=== PATIENT | male | born 1960 | race Caucasian/White ===

== ENCOUNTER 2022-10-11 09:10 | Emergency (ER) | payer BC, SELFPAY ==
[2022-10-11 09:19] VITALS: BP 176/103; PULSE 85; RESP 16; TEMP 36.7; O2SAT 98; BMI 32.9
--- NOTE | 2022-10-11 09:29 | ED.GENADULT ---
HPI - General Adult General Time Seen by Provider: 09:29 Date Seen: 10/11/22 Chief complaint: Dizziness/Vertigo Stated complaint: vertigo/syncope + vomiting Time Seen by Provider: 10/11/22 09:26 Source: patient and RN notes reviewed Mode of arrival: ambulatory Limitations: no limitations History of Present Illness HPI narrative: This 61-year-old male is driven in from work where he had the sudden development of spinning sensation. He was walking up some stairs for meeting and started having sudden onset of spinning, subsequently had nausea vomiting and dry heaves. He has not been ill with anything, no underlying cough cold symptoms. No headache, no visual changes. Notes no numbness tingling anywhere, no incoordination or abnormal ability to use arms and legs. He does not feel like he can walker move very well as a precipitate the dizziness, if he tries to lie flat the spinning starts again. If he is sitting semi upright and still, feels better. Still nauseated but no subsequent vomiting since arrival. He is never had vertigo before. This started about 7:00 a.m., I am seeing him around 9:30 a.m.. No chest pain, no palpitations or irregular heart beat sensed. Related Data Home Medications Medication Instructions Recorded Confirmed indomethacin 50 mg capsule mg PO 10/11/22 Previous Rx's Medication Instructions Recorded hydroxyzine HCl 25 mg tablet 25 mg PO QID PRN #20 tabs 10/11/22 Allergies Allergy/AdvReac Type Severity Reaction Status Date / Time No Known Drug Allergies Allergy Verified 10/11/22 10:14 Review of Systems Status of ROS: Reports: 6 or more systems reviewed and unremarkable except as noted in History and below [facility] Social History Smoking Status: Never smoker Do you use any of these nicotine containing products: None Second hand tobacco smoke exposure: No How often do you have a drink containing alcohol: monthly or less AUDIT-C Alcohol total score: 1 Non-prescribed substance use: denies use service: No Exam Const: Vital Signs, click to edit/add: Vital Signs - 24 hr 10/11/22 09:19 10/11/22 09:30 10/11/22 09:33 Temperature 98.0 F Pulse Rate [Pulse Oximeter] 85 87 Respiratory Rate 16 16 Blood Pressure [Le ft Upper Arm] 176/103 H 189/100 H Pulse Oximetry 98 99 99 Oxygen Delivery Me thod Room Air Room Air 10/11/22 10:00 10/11/22 10:30 Temperature 98.0 F Pulse Rate [Pulse Oximeter] 85 80 Respiratory Rate 16 14 Blood Pressure [Le ft Upper Arm] 181/100 H 168/110 H Pulse Oximetry 99 98 Oxygen Delivery Me thod Room Air Room Air This 61-year-old male is alert interactive, looks like he does not feel well but is pleasant and conversive. Pupils are equal round, extraocular muscles intact but do note left beating horizontal nystagmus. Symmetrical facial function, speech normal. No visual changes on confrontation. Neck is supple, no masses. CV regular rate and rhythm, no murmur. Lungs are clear, no tachypnea, no wheezing or crackles. Abdomen is soft no rebound or guarding organomegaly. Motor sensory normal and symmetrical throughout face arms and legs. No tremors, no dysmetria noted. NIH is 0 at this time. Documenting provider has reviewed patient's vital signs: yes Course Course Hospital Course: This patient is presenting with sudden onset vertigo this morning, peripheral versus central is unclear here. Do favor peripheral with his presentation in no other symptoms outside of nystagmus in the vertigo but will contact Stroke Neurology. Will be ordering stat head CT, will discuss further imaging with Stroke Neurology. Will get EKG, have him on cardiac monitoring and pulse oximetry and appropriate labs. Reevaluation(s) Time of Reevaluation #1: 11:07 Reevaluation #1: Parker is feeling better, still had the vertigo when he had to lie flat for CT imaging. I will add in oral dose of Vistaril to see if that does help. This is appearing to be a peripheral process, likely labyrinthitis or vestibulitis. Time of Reevaluation #2: 12:59 Reevaluation #2: Patient is feeling much better, has been up and ambulatory to the bathroom without significant difficulty. He has questions about when he will be able to go back to work. Reviewed with him I do not know for sure but will be based on his symptoms. Do recommend ongoing meclizine scheduled for few days and I will send a prescription for p.r.n. hydroxyzine in. Will provide him a note for work for the next 2 days, follow up with his primary care provider if he needs longer. Will also provide him a note for physical therapy should he decide he would want to pursue that for ongoing symptoms. Consultations Consultation #1: Spoke with neurologist on-call for stroke Neurology. They are going to see the patient. They do agree with the head CT. Time: 09:37 Consultation #2: Patient has been evaluated by the neurologist, agrees that there are no other focal deficits outside of the vertigo and nystagmus. The neurologist reports that they were able to get Parker up and take a few steps. They do want the CT angiograms done and patient is currently in there having this performed. Time: 09:58 Vital Signs Vital signs: Initial Vital Signs Temperature 98.0 F 10/11/22 09:19 Temperature Source Temporal Artery Scan 10/11/22 09:19 Pulse Rate 85 10/11/22 09:19 Pulse Rhythm Regular 10/11/22 09:19 Respiratory Rate 16 10/11/22 09:19 Blood Pressure 176/103 H 10/11/22 09:19 Blood Pressure Mean 127 H 10/11/22 09:19 Blood Pressure Position Supine 10/11/22 09:19 Pulse Oximetry 98 10/11/22 09:19 Oxygen Delivery Method Room Air 10/11/22 09:19 Vital Signs Temperature 98.0 F 10/11/22 09:19 Pulse Rate 85 10/11/22 09:19 Respiratory Rate 16 10/11/22 09:19 Blood Pressure 176/103 H 10/11/22 09:19 Pulse Oximetry 98 10/11/22 09:19 Oxygen Delivery Method Room Air 10/11/22 09:19 Temperature 98.0 F 10/11/22 10:30 Pulse Rate 80 10/11/22 10:30 Respiratory Rate 14 10/11/22 10:30 Blood Pressure 168/110 H 10/11/22 10:30 Pulse Oximetry 98 10/11/22 10:30 Oxygen Delivery Method Room Air 10/11/22 10:30 Medical Decision Making Lab Data Lab results reviewed: Yes I reviewed the patient's lab results Lab results narrative: Confirmed with lab that blood is mildly hemolyzed, very likely reason for the slightly elevated potassium of 5.4. Labs: Lab Results 10/11/22 10/11/22 10/11/22 Range/Units 05:35 09:38 09:38 WBC 6.39 (4.50-11.00) K/uL RBC 5.62 (4.30-5.90) m/uL Hgb 17.4 (13.5-17.5) gm/dL Hct 50.6 (37.0-53.0) % MCV 90 (80-100) fL MCH 31 (26-34) pg MCHC 34 (32-36) gm/dL RDW Coeff of Yassine 13.1 (11.5-15.5) % Plt Count 140 (140-440) K/uL Neut % (Auto) 66.0 (42.0-72.0) % Lymph % (Auto) 24.7 (20-44) % Winkler % (Auto) 7.5 (0.0-11.0) % Eos % (Auto) 0.6 (0.0-7.0) % Baso % (Auto) 0.3 (0.0-3.0) % Neut # (Auto) 4.21 (1.7-7.0) K/uL Lymph # (Auto) 1.58 (0.90-2.90) K/uL Winkler # (Auto) 0.50 (0.00-0.90) K/UL Eos # (Auto) 0.04 (0.00-0.50) K/uL Baso # (Auto) 0.02 (0.00-0.30) K/uL Abs Immat Gran (auto) 0.06 (0.00-0.30) K/uL Imm/Tot Granulo (auto) 0.9 % Sodium 138 (135-149) mmol/L Potassium 5.4 H (3.6-5.1) mmol/L Chloride 105 (96-114) mmol/L Carbon Dioxide 24 (20-32) mmol/L Anion Gap 9 (7-15) mEq/L BUN 24 (7-30) mg/dL Creatinine 1.2 (0.5-1.5) mg/dL Estimated Creat Clear 61.20 Estimated GFR 69 ml/min Glucose 166 H (60-115) mg/dL Calcium 9.7 (8.4-10.6) mg/dL Magnesium 2.0 Cancelled (1.5-2.6) mg/dL TSH 2.490 (0.270-4.200) uIU/mL Imaging Data CT scan - head: Attestation: I have reviewed the pertinent imaging results. Radiologist's impression: Patient: CAROLYN RIZZO Facility:?[facility] Patient ID:?[id number] Site Patient ID:?[id number]. Site :?[id number] Study:?CT Head STROKE CODE-10/11/2022 9:51:57 AM Ordering Physician:?Oh Banerjee Final Report: INDICATION: Sudden onset of vertigo. COMPARISON: None. TECHNIQUE: CT of the head without IV contrast. Coronal and sagittal reconstructions. FINDINGS: No intracranial hemorrhage, mass effect, or evidence of acute infarct. No midline shift. No abnormal extra-axial fluid collections. Normal caliber ventricular system. Orbits and extraocular muscles are symmetric. The visualized paranasal sinuses and mastoid air cells are clear. No acute fracture identified. Soft tissues are unremarkable. IMPRESSION: No acute intracranial findings. Please note that all CT scans at this facility use dose modulation, iterative reconstruction, and/or weight-based dosing when appropriate to reduce radiation dose to as low as reasonably achievable. Dictated by Netta Casey MD @ 10/11/2022 10:07:10 AM (Electronic Signature) CTA head: Attestation: I have reviewed the pertinent imaging results. Radiologist's impression: Patient: CAROLYN RIZZO Facility:?[facility] Patient ID:?[id number] Site Patient ID:?[id number]. Site :?1960 Study:?CT Head Angio STROKE CODE-10/11/2022 10:11:04 AM Ordering Physician:?Oh Banerjee Final Report: INDICATION: Sudden onset vertigo. TECHNIQUE: CTA head with contrast bolus tracking, 3D angiographic rendering using maximum intensity projection (MIP) and images permanently archived. FINDINGS: There is normal opacification of the intracranial vasculature. There is no large vessel occlusion. No aneurysm is identified. IMPRESSION: Unremarkable head CTA. No large vessel occlusion. Please note that all CT scans at this facility use dose modulation, iterative reconstruction, and/or weight-based dosing when appropriate to reduce radiation dose to as low as reasonably achievable. Dictated by Juan Ramon Albarado MD @ 10/11/2022 10:17:13 AM (Electronic Signature) CTA neck: Attestation: I have reviewed the pertinent imaging results. Radiologist's impression: Patient: CAROLYN RIZZO Facility:?[facility] Patient ID:?[id number] Site Patient ID:?[id number]. Site :?[id number] Study:?CT Neck Angio Angio STROKE CODE-10/11/2022 10:11:33 AM Ordering Physician:Jazmyne Banerjee Final Report: INDICATION: Sudden onset vertigo. TECHNIQUE: CTA neck with contrast bolus tracking, 3D angiographic rendering using maximum intensity projection (MIP) and images permanently archived. FINDINGS: There is minor carotid atherosclerosis. There is no significant carotid artery stenosis or dissection. There is no significant vertebral artery stenosis or dissection. The soft tissues of the neck are within normal limits. The cervical spine is in normal alignment. Degenerative changes are noted in the cervical spine. IMPRESSION: No significant carotid or vertebral artery stenosis or dissection. Please note that all CT scans at this facility use dose modulation, iterative reconstruction, and/or weight-based dosing when appropriate to reduce radiation dose to as low as reasonably achievable. Dictated by Juan Ramon Albarado MD @ 10/11/2022 10:19:32 AM (Electronic Signature) ECG Data Attestation: I personally reviewed and interpreted this ECG as follows: (Normal sinus rhythm, 85 beats per minute. No ischemic change. QT corrected 454 milliseconds.) Prior ECG tracings: not available for review Discharge Plan Discharge Clinical Impression: Vertigo Patient Disposition: Home, Self-Care Condition: Stable Instructions: Vertigo (ED) Additional Instructions: Take meclizine 25 mg 3 times a day scheduled for the next few days, then can take as needed. Will also write for Vistaril/hydroxyzine which can be used in supplement with the meclizine for further needed control of recurrent vertigo symptoms. Have provided you note to be out of work, have provided a referral to physical therapy if you have ongoing symptoms. Do recommend follow-up with your primary care provider within this week if you are not steadily improving over the next few days. Overall symptoms could last 7-10 days if this is a viral process, vestibular neuronitis. No that the medications can be sedating, may need to be careful driving or operating machinery if they are causing the side effect for you. Activity Level: Activity as Tolerated Discharge Diet: Regular Prescriptions: New hydroxyzine HCl 25 mg tablet 25 mg PO QID PRNQty: 20 0RF No Action indomethacin 50 mg capsule PO Stand Alone Forms: [employer] Info Instructions
[2022-10-11 09:30] VITALS: O2SAT 99
--- NOTE | 2022-10-11 09:30 | PC.NURSE ---
physician in room with patient, code stroke activated. pt last known well time 0700 this morning per pt. Neurology paged per workflow. Call back at 0935. Pt in CT and returned to room, RN assisted with Teleneurology. Orders to have CTA per Neurologist.
[2022-10-11 09:33] VITALS: BP 189/100; PULSE 87; RESP 16; O2SAT 99
--- NOTE | 2022-10-11 09:33 | CRLHL7_ITS ---
For Patients: As a result of the Cures Act, medical imaging exams and procedure reports are released immediately into your electronic medical record. You may view this report before your referring provider. If you have questions, please contact your health care provider. INDICATION: Sudden onset of vertigo. COMPARISON: None. TECHNIQUE: CT of the head without IV contrast. Coronal and sagittal reconstructions. FINDINGS: No intracranial hemorrhage, mass effect, or evidence of acute infarct. No midline shift. No abnormal extra-axial fluid collections. Normal caliber ventricular system. Orbits and extraocular muscles are symmetric. The visualized paranasal sinuses and mastoid air cells are clear. No acute fracture identified. Soft tissues are unremarkable. IMPRESSION: No acute intracranial findings. Please note that all CT scans at this facility use dose modulation, iterative reconstruction, and/or weight-based dosing when appropriate to reduce radiation dose to as low as reasonably achievable. Dictated by Netta Casey MD @ 10/11/2022 10:07:10 AM (Electronically Signed)
--- NOTE | 2022-10-11 09:41 | ED.NURSE ---
[id number] paged. [id number]-#20G IV in R AC by RICK Simon. Bloodwork drawn and sent to lab. EKG done. 0940-Pt to imaging via cot. 0943-Teleneurologist on screen, in room, ready for Pt.
[2022-10-11 09:49] LABS: Basophils Absolute Auto 0.02 K/uL (0.00-0.30); Basophils Percent Auto 0.3 % (0.0-3.0); Eosinophils Absolute Auto 0.04 K/uL (0.00-0.50); Eosinophils Percent Auto 0.6 % (0.0-7.0); Hematocrit 50.6 % (37.0-53.0); Hemoglobin* 17.4 gm/dL (13.5-17.5); Immature Granulocytes Abs Auto 0.06 K/uL (0.00-0.30); Immature Granulocytes Pct Auto 0.9 %; Lymphocytes Absolute Auto 1.58 K/uL (0.90-2.90); Lymphocytes Percent Auto 24.7 % (20-44); Mean Corpuscular HGB Conc 34 gm/dL (32-36); Mean Corpuscular Hemoglobin 31 pg (26-34); Mean Corpuscular Volume 90 fL (80-100); Monocytes Percent Auto 7.5 % (0.0-11.0); Neutrophils Absolute Auto 4.21 K/uL (1.7-7.0); Platelet Count* 140 K/uL (140-440); RDW Coefficient of Variation % 13.1 % (11.5-15.5); Red Blood Count 5.62 m/uL (4.30-5.90); Slide Review Reflex No; White Blood Count* 6.39 K/uL (4.50-11.00)
--- NOTE | 2022-10-11 09:50 | PC.NURSE ---
Pt over to Radiology via cart for CTA.
--- NOTE | 2022-10-11 09:53 | CRLHL7_ITS ---
For Patients: As a result of the Century Cures Act, medical imaging exams and procedure reports are released immediately into your electronic medical record. You may view this report before your referring provider. If you have questions, please contact your health care provider. INDICATION: Sudden onset vertigo. TECHNIQUE: CTA head with contrast bolus tracking, 3D angiographic rendering using maximum intensity projection (MIP) and images permanently archived. FINDINGS: There is normal opacification of the intracranial vasculature. There is no large vessel occlusion. No aneurysm is identified. IMPRESSION: Unremarkable head CTA. No large vessel occlusion. Please note that all CT scans at this facility use dose modulation, iterative reconstruction, and/or weight-based dosing when appropriate to reduce radiation dose to as low as reasonably achievable. Dictated by Juan Ramon Albarado MD @ 10/11/2022 10:17:13 AM (Electronically Signed)
--- NOTE | 2022-10-11 09:54 | CRLHL7_ITS ---
For Patients: As a result of the Century Cures Act, medical imaging exams and procedure reports are released immediately into your electronic medical record. You may view this report before your referring provider. If you have questions, please contact your health care provider. INDICATION: Sudden onset vertigo. TECHNIQUE: CTA neck with contrast bolus tracking, 3D angiographic rendering using maximum intensity projection (MIP) and images permanently archived. FINDINGS: There is minor carotid atherosclerosis. There is no significant carotid artery stenosis or dissection. There is no significant vertebral artery stenosis or dissection. The soft tissues of the neck are within normal limits. The cervical spine is in normal alignment. Degenerative changes are noted in the cervical spine. IMPRESSION: No significant carotid or vertebral artery stenosis or dissection. Please note that all CT scans at this facility use dose modulation, iterative reconstruction, and/or weight-based dosing when appropriate to reduce radiation dose to as low as reasonably achievable. Dictated by Juan Ramon Albarado MD @ 10/11/2022 10:19:32 AM (Electronically Signed)
[2022-10-11 10:00] VITALS: BP 181/100; PULSE 85; RESP 16; O2SAT 99
--- NOTE | 2022-10-11 10:03 | PC.NURSE ---
Pt in room, denies dizziness or headache while sitting up in bed. Waiting for Radiology results. See MAR.
[2022-10-11 10:08] LABS: Chloride* 105 mmol/L (96-114); Potassium* 5.4 mmol/L (3.6-5.1); Sodium* 138 mmol/L (135-149)
[2022-10-11 10:11] LABS: Anion Gap 9 mEq/L (7-15); Blood Urea Nitrogen* 24 mg/dL (7-30); Carbon Dioxide* 24 mmol/L (20-32); Creatinine* 1.2 mg/dL (0.5-1.5); Estimated Glomerular Filt Rate 69 ml/min; Glucose* 166 mg/dL (60-115)
[2022-10-11 10:12] LABS: Calcium* 9.7 mg/dL (8.4-10.6)
[2022-10-11] MEDS: 0.9 % SODIUM CHLORIDE 1000 ml 1,000 ML 500 ML IV (10:15)
[2022-10-11] MEDS: MECLIZINE HCL 25 MG TABLET PO (10:16)
[2022-10-11] MEDS: ONDANSETRON 2 MG/ML inj 4 MG IVP (10:16)
[2022-10-11 10:30] VITALS: BP 168/110; PULSE 80; RESP 14; TEMP 36.7; O2SAT 98
[2022-10-11] MEDS: hydrOXYzine pamoate 25 MG CAPSULE PO (11:22)
[2022-10-11 13:23] VITALS: BP 150/78; PULSE 78; RESP 16; TEMP 36.7
== END 2022-10-11 13:24 | disposition home or self-care (01) ==
PROVIDERS: Emergency Provider Family Medicine; PCP Family Medicine
DX: R42 Dizziness and giddiness (principal)
CPT/HCPCS: 36415; 70450; 70496; 70498; 80048; 83735; 84443; 85025; 93005; 94761; 96361; 96374; 99284; 99285; G0427; A9270; J2405; J7030; Q9967